=== PATIENT | male | born 1950 | race Caucasian/White ===

== ENCOUNTER 2016-12-11 08:00 | Inpatient (IN) | payer OTHER, MEDICARE ==
[2017-01-07] MEDS ORDERED: Magnesium Citrate Solution 296 ML Bottle PO ONE (00:05)
[2017-01-08] MEDS ORDERED: ceFAZolin 2 GM in Premix Bag 1 BAG IV ONE (00:05)
[2017-01-08] MEDS ORDERED: Lactated Ringers 1,000 ML IV SCH (00:05)
--- NOTE | 2017-01-08 07:10 | PCM.PREANE ---
Preanesthetic Assessment - Anesthesia/Transfusion/Family Hx Anesthesia History: No Prior Anesthesia Family History of Anesthesia Reaction: No Transfusion History: No Prior Transfusion(s) - Review of Systems General: No Symptoms Pulmonary: No Symptoms Cardiovascular: No Symptoms Gastrointestinal: No symptoms Neurological: No Symptoms Other: Reports: None - Physical Assessment NPO Status Date: 01/07/17 O2 Sat by Pulse Oximetry: 94 Respiratory Rate: 18 Vital Signs: Last Vital Signs Temp Pulse 81 01/08/17 06:51 Resp 18 01/08/17 06:51 BP 178/87 H 01/08/17 06:51 Pulse Ox 94 L 01/08/17 06:51 Height: 1.7 m Weight: 77.111 kg ASA Class: 2 Mental Status: Alert & Oriented x3 Airway Class: Mallampati = 1 Dentition: Reports: Normal Dentition ROM/Head Extension: Full Lungs: Clear to auscultation, Normal respiratory effort Cardiovascular: Regular Rate, Regular Rhythm - Lab Values: Laboratory Last Values WBC 8.73 K/uL (4.0-11.0) 01/07/17 13:44 RBC 4.82 M/uL (4.50-5.90) 01/07/17 13:44 Hgb 14.7 g/dL (13.0-17.0) 01/07/17 13:44 Hct 45.4 % (38.0-50.0) 01/07/17 13:44 MCV 94.2 fL (80.0-98.0) 01/07/17 13:44 MCH 30.5 pg (27.0-32.0) 01/07/17 13:44 MCHC 32.4 g/dL (31.0-37.0) 01/07/17 13:44 RDW Std Deviation 45.8 fl (28.0-62.0) 01/07/17 13:44 RDW Coeff of Mohan 13 % (11.0-15.0) 01/07/17 13:44 Plt Count 230 K/uL (150-400) 01/07/17 13:44 MPV 11.70 fL (7.40-12.00) 01/07/17 13:44 Neut % (Auto) 62.1 % (48.0-80.0) 01/07/17 13:44 Lymph % (Auto) 22.1 % (16.0-40.0) 01/07/17 13:44 [place] % (Auto) 13.3 % (0.0-15.0) 01/07/17 13:44 Eos % (Auto) 2.2 % (0.0-7.0) 01/07/17 13:44 Baso % (Auto) 0.3 % (0.0-1.5) 01/07/17 13:44 Neut # (Auto) 5.4 K/uL (1.4-5.7) 01/07/17 13:44 Lymph # (Auto) 1.9 K/uL (0.6-2.4) 01/07/17 13:44 [place] # (Auto) 1.2 K/uL (0.0-0.8) H 01/07/17 13:44 Eos # (Auto) 0.2 K/uL (0.0-0.7) 01/07/17 13:44 Baso # (Auto) 0.0 K/uL (0.0-0.1) 01/07/17 13:44 Nucleated RBC % 0.0 /100WBC 01/07/17 13:44 Nucleated RBCs # 0 K/uL 01/07/17 13:44 Blood Type A POSITIVE 01/07/17 16:46 Antibody Screen NEGATIVE 01/07/17 16:46 Crossmatch See Detail 01/07/17 16:46 - Allergies Allergies/Adverse Reactions: Allergies Allergy/AdvReac Type Severity Reaction Status Date / Time No Known Allergies Allergy Verified 10/23/16 08:50 - Blood Blood Available: Yes - Anesthesia Plan Pre-Op Medication Ordered: None - Acknowledgements Anesthesia Type Planned: General Anesthesia, Spinal Pt an Appropriate Candidate for the Planned Anesthesia: Yes Alternatives and Risks of Anesthesia Discussed w Pt/Guardian: Yes Pt/Guardian Understands and Agrees with Anesthesia Plan: Yes PreAnesthesia Questionnaire HEENT History: Reports: Other (see below) Other HEENT History: wears glasses Cardiovascular History: Reports: High cholesterol, Hypertension Respiratory History: Reports: SOB Other Respiratory History: states SOB at times with excertion Gastrointestinal History: Reports: GERD Genitourinary History: Reports: Prostate disorder, Other (see below) (CKD3, creat 1.8,) Musculoskeletal History: Reports: Other (see below) Other Musculoskeletal History: hx fx thumb Oncologic (Cancer) History: Reports: Prostate - Past Surgical History Head Surgeries/Procedures: Reports: None - SUBSTANCE USE Smoking Status *Q: Former Smoker Recreational Drug Use History: No - HOME MEDS Home Medications: Home Meds Aspirin [[place] Aspirin] 81 mg PO ASDIRECTED 01/03/17 [History] Famotidine [Pepcid] 1 tab PO DAILY 01/03/17 [History] Pravastatin Sodium [Pravachol] 40 mg PO DAILY 01/03/17 [History] amLODIPine Besylate [Norvasc] 2.5 mg PO DAILY 01/03/17 [History] - CURRENT (IN HOUSE) MEDS Current Meds: Current Medications Lactated Ringer's (Ringers, Lactated) 1,000 mls @ 200 mls/hr IV ASDIRECTED [facility] Last Admin: 01/08/17 06:53 Dose: 200 mls/hr Discontinued Medications Cefazolin Sodium/Dextrose 2 gm (/ Premix) 50 mls @ 100 mls/hr IV ONCALL ONE Stop: 01/08/17 00:34 Magnesium Citrate (Citrate Of Magnesia) 1 ml PO ONETIME ONE Stop: 01/07/17 00:06 Preanesthetic Assessment - ANESTHESIA/TRANSFUSION/FAMILY HX Family History of Anesthesia Reaction: No - PHYSICAL ASSESSMENT O2 Sat by Pulse Oximetry: 94 RR: 18 Vital Signs: Last Vital Signs Temp Pulse 81 01/08/17 06:51 Resp 18 01/08/17 06:51 BP 178/87 H 01/08/17 06:51 Pulse Ox 94 L 01/08/17 06:51 Height: 1.7 m Weight: 77.111 kg - LAB Values: Laboratory Last Values WBC 8.73 K/uL (4.0-11.0) 01/07/17 13:44 RBC 4.82 M/uL (4.50-5.90) 01/07/17 13:44 Hgb 14.7 g/dL (13.0-17.0) 01/07/17 13:44 Hct 45.4 % (38.0-50.0) 01/07/17 13:44 MCV 94.2 fL (80.0-98.0) 01/07/17 13:44 MCH 30.5 pg (27.0-32.0) 01/07/17 13:44 MCHC 32.4 g/dL (31.0-37.0) 01/07/17 13:44 RDW Std Deviation 45.8 fl (28.0-62.0) 01/07/17 13:44 RDW Coeff of Mohan 13 % (11.0-15.0) 01/07/17 13:44 Plt Count 230 K/uL (150-400) 01/07/17 13:44 MPV 11.70 fL (7.40-12.00) 01/07/17 13:44 Neut % (Auto) 62.1 % (48.0-80.0) 01/07/17 13:44 Lymph % (Auto) 22.1 % (16.0-40.0) 01/07/17 13:44 [place] % (Auto) 13.3 % (0.0-15.0) 01/07/17 13:44 Eos % (Auto) 2.2 % (0.0-7.0) 01/07/17 13:44 Baso % (Auto) 0.3 % (0.0-1.5) 01/07/17 13:44 Neut # (Auto) 5.4 K/uL (1.4-5.7) 01/07/17 13:44 Lymph # (Auto) 1.9 K/uL (0.6-2.4) 01/07/17 13:44 [place] # (Auto) 1.2 K/uL (0.0-0.8) H 01/07/17 13:44 Eos # (Auto) 0.2 K/uL (0.0-0.7) 01/07/17 13:44 Baso # (Auto) 0.0 K/uL (0.0-0.1) 01/07/17 13:44 Nucleated RBC % 0.0 /100WBC 01/07/17 13:44 Nucleated RBCs # 0 K/uL 01/07/17 13:44 Blood Type A POSITIVE 01/07/17 16:46 Antibody Screen NEGATIVE 01/07/17 16:46 Crossmatch See Detail 01/07/17 16:46 - ALLERGIES Allergies/Adverse Reactions: Allergies Allergy/AdvReac Type Severity Reaction Status Date / Time No Known Allergies Allergy Verified 10/23/16 08:50
[2017-01-08] MEDS ORDERED: Ondansetron 4 MG/2 ML SDV ONE (07:26)
[2017-01-08] MEDS ORDERED: Lidocaine 2% 5 ML SDV ONE (07:26)
[2017-01-08] MEDS ORDERED: Rocuronium 10 MG/ML 10 ML Syringe ONE (07:26)
[2017-01-08] MEDS ORDERED: Propofol 200 MG/20 ML SDV ONE (07:26)
[2017-01-08] MEDS ORDERED: Midazolam 1 MG/ML 2 ML SDV ONE (07:27)
[2017-01-08] MEDS ORDERED: fentaNYL 250 MCG/5 ML SDV ONE (07:27)
[2017-01-08] MEDS ORDERED: Phenylephrine 1% 10 MG/ML SDV ONE (07:29)
[2017-01-08] MEDS ORDERED: Morphine PF 10 MG/10 ML SDV ONE (08:03)
[2017-01-08] MEDS ORDERED: Phenylephrine/Normal Saline 100 MCG/ML 10 ML Syringe ONE (08:11)
[2017-01-08] MEDS ORDERED: Mineral Oil/Petrolatum Ophth Oint 3.5 GM Tube ONE (08:16)
[2017-01-08] MEDS ORDERED: Dexamethasone 4 MG/ML 5 ML MDV ONE (08:21)
[2017-01-08] MEDS ORDERED: ceFAZolin 1 GM Vial ONE (08:50)
[2017-01-08] MEDS ORDERED: Gentamicin 40 MG/ML 2 ML Vial ONE (08:50)
[2017-01-08] MEDS ORDERED: Nalbuphine 10 MG/1 ML Vial IVPUSH PRN (09:08)
[2017-01-08] MEDS ORDERED: diphenhydrAMINE 50 MG/ML SDV IVPUSH PRN (09:08)
[2017-01-08] MEDS ORDERED: Naloxone 0.4 MG/ML Syringe IVPUSH PRN (09:08)
--- NOTE | 2017-01-08 09:18 | PCM.PREANE ---
Preanesthetic Assessment - Anesthesia/Transfusion/Family Hx Anesthesia History: No Prior Anesthesia Family History of Anesthesia Reaction: No Transfusion History: No Prior Transfusion(s) Intubation History: History of Difficulty Intubation (Anterior/Grade IV View with Cano 2 (disposable); Bougie used and successful) - Review of Systems Other: Reports: None - Physical Assessment NPO Status Date: 01/07/17 O2 Sat by Pulse Oximetry: 94 Respiratory Rate: 18 Vital Signs: Last Vital Signs Temp Pulse 81 01/08/17 06:51 Resp 18 01/08/17 07:14 BP 178/87 H 01/08/17 06:51 Pulse Ox 94 L 01/08/17 07:14 Height: 5 ft 7 in Weight: 170 lb - Lab Values: Laboratory Last Values WBC 8.73 K/uL (4.0-11.0) 01/07/17 13:44 RBC 4.82 M/uL (4.50-5.90) 01/07/17 13:44 Hgb 14.7 g/dL (13.0-17.0) 01/07/17 13:44 Hct 45.4 % (38.0-50.0) 01/07/17 13:44 MCV 94.2 fL (80.0-98.0) 01/07/17 13:44 MCH 30.5 pg (27.0-32.0) 01/07/17 13:44 MCHC 32.4 g/dL (31.0-37.0) 01/07/17 13:44 RDW Std Deviation 45.8 fl (28.0-62.0) 01/07/17 13:44 RDW Coeff of Mohan 13 % (11.0-15.0) 01/07/17 13:44 Plt Count 230 K/uL (150-400) 01/07/17 13:44 MPV 11.70 fL (7.40-12.00) 01/07/17 13:44 Neut % (Auto) 62.1 % (48.0-80.0) 01/07/17 13:44 Lymph % (Auto) 22.1 % (16.0-40.0) 01/07/17 13:44 [place] % (Auto) 13.3 % (0.0-15.0) 01/07/17 13:44 Eos % (Auto) 2.2 % (0.0-7.0) 01/07/17 13:44 Baso % (Auto) 0.3 % (0.0-1.5) 01/07/17 13:44 Neut # (Auto) 5.4 K/uL (1.4-5.7) 01/07/17 13:44 Lymph # (Auto) 1.9 K/uL (0.6-2.4) 01/07/17 13:44 [place] # (Auto) 1.2 K/uL (0.0-0.8) H 01/07/17 13:44 Eos # (Auto) 0.2 K/uL (0.0-0.7) 01/07/17 13:44 Baso # (Auto) 0.0 K/uL (0.0-0.1) 01/07/17 13:44 Nucleated RBC % 0.0 /100WBC 01/07/17 13:44 Nucleated RBCs # 0 K/uL 01/07/17 13:44 Blood Type A POSITIVE 01/07/17 16:46 Antibody Screen NEGATIVE 01/07/17 16:46 Crossmatch See Detail 01/07/17 16:46 - Allergies Allergies/Adverse Reactions: Allergies Allergy/AdvReac Type Severity Reaction Status Date / Time No Known Allergies Allergy Verified 10/23/16 08:50 - Blood Blood Available: Yes PreAnesthesia Questionnaire HEENT History: Reports: Other (see below) Other HEENT History: wears glasses Cardiovascular History: Reports: High cholesterol, Hypertension Respiratory History: Reports: SOB Other Respiratory History: states SOB at times with excertion Gastrointestinal History: Reports: GERD Genitourinary History: Reports: Prostate disorder, Other (see below) (CKD3, creat 1.8,) Musculoskeletal History: Reports: Other (see below) Other Musculoskeletal History: hx fx thumb Oncologic (Cancer) History: Reports: Prostate - Past Surgical History Head Surgeries/Procedures: Reports: None - SUBSTANCE USE Smoking Status *Q: Former Smoker Recreational Drug Use History: No - HOME MEDS Home Medications: Home Meds Aspirin [[place] Aspirin] 81 mg PO ASDIRECTED 01/03/17 [History] Famotidine [Pepcid] 1 tab PO DAILY 01/03/17 [History] Pravastatin Sodium [Pravachol] 40 mg PO DAILY 01/03/17 [History] amLODIPine Besylate [Norvasc] 2.5 mg PO DAILY 01/03/17 [History] - CURRENT (IN HOUSE) MEDS Current Meds: Current Medications Diphenhydramine HCl (Benadryl) 25 mg IVPUSH Q4H PRN PRN Reason: Pruritis Stop: 01/09/17 09:09 Lactated Ringer's (Ringers, Lactated) 1,000 mls @ 200 mls/hr IV ASDIRECTED [facility] Last Admin: 01/08/17 06:53 Dose: 200 mls/hr Nalbuphine HCl (Nubain) 2.5 mg IVPUSH Q3H PRN PRN Reason: Pruritis Stop: 01/09/17 09:09 Naloxone HCl (Narcan) 0.1 mg IVPUSH ONETIME PRN PRN Reason: RR <6 WITH STIMULATION Stop: 01/09/17 09:10 Discontinued Medications Cefazolin Sodium (Ancef) Confirm Administered Dose 1 gm .ROUTE .STK-MED ONE Stop: 01/08/17 08:51 Dexamethasone (Dexamethasone) Confirm Administered Dose 20 mg .ROUTE .STK-MED ONE Stop: 01/08/17 08:22 Fentanyl (Sublimaze) Confirm Administered Dose 250 mcg .ROUTE .STK-MED ONE Stop: 01/08/17 07:28 Gentamicin Sulfate (Gentamicin) Confirm Administered Dose 80 mg .ROUTE .STK-MED ONE Stop: 01/08/17 08:51 Cefazolin Sodium/Dextrose 2 gm (/ Premix) 50 mls @ 100 mls/hr IV ONCALL ONE Stop: 01/08/17 00:34 Lidocaine (Xylocaine-Mpf 2%) Confirm Administered Dose 5 ml .ROUTE .STK-MED ONE Stop: 01/08/17 07:27 Magnesium Citrate (Citrate Of Magnesia) 1 ml PO ONETIME ONE Stop: 01/07/17 00:06 Midazolam HCl (Versed 1 Mg/Ml) Confirm Administered Dose 2 mg .ROUTE .STK-MED ONE Stop: 01/08/17 07:28 Mineral Oil/White Petrolatum (Lacri-Lube S.O.P Oint) Confirm Administered Dose 3.5 gm .ROUTE .STK-MED ONE Stop: 01/08/17 08:17 Morphine Sulfate (Duramorph Pf) Confirm Administered Dose 10 mg .ROUTE .STK-MED ONE Stop: 01/08/17 08:04 Ondansetron HCl (Zofran) Confirm Administered Dose 4 mg .ROUTE .STK-MED ONE Stop: 01/08/17 07:27 Phenylephrine HCl (Hussein-Synephrine) Confirm Administered Dose 10 mg .ROUTE .STK- MED ONE Stop: 01/08/17 07:30 Phenylephrine HCl (Phenylephrine In Ns 100 Mcg/Ml) Confirm Administered Dose 1 mg .ROUTE .STK-MED ONE Stop: 01/08/17 08:12 Propofol (Diprivan 20 Ml) Confirm Administered Dose 200 mg .ROUTE .STK-MED ONE Stop: 01/08/17 07:27 Rocuronium [place] (Zemuron) Confirm Administered Dose 100 mg .ROUTE .STK-MED ONE Stop: 01/08/17 07:27 Preanesthetic Assessment - ANESTHESIA/TRANSFUSION/FAMILY HX Family History of Anesthesia Reaction: No - REVIEW OF SYSTEMS Other: Reports: None - PHYSICAL ASSESSMENT O2 Sat by Pulse Oximetry: 94 RR: 18 Vital Signs: Last Vital Signs Temp Pulse 81 01/08/17 06:51 Resp 18 01/08/17 07:14 BP 178/87 H 01/08/17 06:51 Pulse Ox 94 L 01/08/17 07:14 Height: 5 ft 7 in Weight: 170 lb NPO Status Date: 01/07/17 - LAB Values: Laboratory Last Values WBC 8.73 K/uL (4.0-11.0) 01/07/17 13:44 RBC 4.82 M/uL (4.50-5.90) 01/07/17 13:44 Hgb 14.7 g/dL (13.0-17.0) 01/07/17 13:44 Hct 45.4 % (38.0-50.0) 01/07/17 13:44 MCV 94.2 fL (80.0-98.0) 01/07/17 13:44 MCH 30.5 pg (27.0-32.0) 01/07/17 13:44 MCHC 32.4 g/dL (31.0-37.0) 01/07/17 13:44 RDW Std Deviation 45.8 fl (28.0-62.0) 01/07/17 13:44 RDW Coeff of Mohan 13 % (11.0-15.0) 01/07/17 13:44 Plt Count 230 K/uL (150-400) 01/07/17 13:44 MPV 11.70 fL (7.40-12.00) 01/07/17 13:44 Neut % (Auto) 62.1 % (48.0-80.0) 01/07/17 13:44 Lymph % (Auto) 22.1 % (16.0-40.0) 01/07/17 13:44 [place] % (Auto) 13.3 % (0.0-15.0) 01/07/17 13:44 Eos % (Auto) 2.2 % (0.0-7.0) 01/07/17 13:44 Baso % (Auto) 0.3 % (0.0-1.5) 01/07/17 13:44 Neut # (Auto) 5.4 K/uL (1.4-5.7) 01/07/17 13:44 Lymph # (Auto) 1.9 K/uL (0.6-2.4) 01/07/17 13:44 [place] # (Auto) 1.2 K/uL (0.0-0.8) H 01/07/17 13:44 Eos # (Auto) 0.2 K/uL (0.0-0.7) 01/07/17 13:44 Baso # (Auto) 0.0 K/uL (0.0-0.1) 01/07/17 13:44 Nucleated RBC % 0.0 /100WBC 01/07/17 13:44 Nucleated RBCs # 0 K/uL 01/07/17 13:44 Blood Type A POSITIVE 01/07/17 16:46 Antibody Screen NEGATIVE 01/07/17 16:46 Crossmatch See Detail 01/07/17 16:46 - ALLERGIES Allergies/Adverse Reactions: Allergies Allergy/AdvReac Type Severity Reaction Status Date / Time No Known Allergies Allergy Verified 10/23/16 08:50 - BLOOD Blood Available: Yes
[2017-01-08] MEDS ORDERED: fentaNYL 100 MCG/2 ML SDV IVPUSH PRN (09:19)
[2017-01-08] MEDS ORDERED: Neostigmine Methylsulfate 1 MG/ML 5 ML Syringe ONE (10:18)
[2017-01-08] MEDS ORDERED: Furosemide 40 MG/4 ML VIAL ONE (10:43)
[2017-01-08] MEDS ORDERED: ceFAZolin 1 GM in Premix Bag 1 BAG IV SCH (10:45)
--- NOTE | 2017-01-08 11:33 | PCM.POSTAN ---
POST ANESTHESIA ASSESSMENT - MENTAL STATUS Mental Status: alert, oriented - RESPIRATORY Respiratory Status: respiratory rate WNL, airway patent, O2 saturation stable - CARDIOVASCULAR CV Status: pulse rate WNL, blood pressure stable - GASTROINTESTINAL GI Status: no symptoms - PAIN Pain Score: 0 (spinal still effective) - POST OP HYDRATION Hydration Status: other (low urine output so far; dr. Torres aware; stable hemodynamically) - OBSERVATIONS Free Text/Narrative:: To ICU for post op overnite per Dr. Torres.
--- NOTE | 2017-01-08 11:58 | OR ---
SURGEON: Andrey Torres M.D. DATE OF PROCEDURE: 01/08/2017 PREOPERATIVE DIAGNOSIS: Adenocarcinoma of the prostate, left side. POSTOPERATIVE DIAGNOSIS: Adenocarcinoma of the prostate, left side. OPERATION: Radical retropubic prostatectomy including bilateral pelvic lymph node dissection. DESCRIPTION OF PROCEDURE: The patient was given general anesthesia, placed in supine position. Table was flexed approximately 15 degrees. The lower abdomen and external genital area were all prepped and draped in sterile drapes. A catheter was placed in the bladder. A lower midline incision was made and carried through the fascia. The retropubic space on both sides exposed, exposing the external iliac vessels, the obturator nerve, and blood vessels. The obturator lymph nodes were removed that were on both sides. The puboprostatic ligaments were taken down. The endopelvic fascia was incised. Dissection around the prostate was started. The venous plexus in front of the membranous urethra was controlled with one suture of #1 Chromic. The apex of the prostate was from the membranous urethra using sharp dissection. Dissection was continued behind the prostate that from anterior wall of the rectum. The seminal vesicles were dissected and included with the specimen. The vas deferens is transected, hemoclipped on both sides. Proximal dissection was carried out the prostate from the neck of the bladder. The anastomosis between the membranous urethra and the bladder neck was completed using six 2-0 chromic sutures at the 6, 8, 10, 4, 2, and 12 o'clock positions. That anastomosis was watertight. The pelvis was irrigated and drained with two large [place] drains, one on each side. Also, brought to the outside through a separate stab wound incisions. The fascia was closed with #2 nylon suture. Subcutaneous tissues reapproximated with 3-0 chromic. Skin was closed with sundeep. AMMONIUM HYDROXIDE OPERATOR: Dr. Corona. ESTIMATED BLOOD LOSS: 200 mL. The patient tolerated the procedure well and moved to recovery room in good condition. OPERATING TIME: 1 hour and 55 minutes. JUSTIN / TONEY /[id number]
[2017-01-08] MEDS: Lactated Ringers 1,000 ML IV SCH ×2 (12:03→23:18)
[2017-01-08] MEDS: Albumin 5% 250 ML IV SCH ×2 (12:04→16:18)
[2017-01-08] MEDS: ceFAZolin 1 GM in Premix Bag 1 BAG IV SCH (16:18)
[2017-01-09] MEDS: ceFAZolin 1 GM in Premix Bag 1 BAG IV SCH ×4 (00:16→23:29)
[2017-01-09] MEDS: Lactated Ringers 1,000 ML IV SCH ×2 (06:34→15:11)
[2017-01-09] MEDS: Enoxaparin 40 MG/0.4 ML Syringe SUBCUT SCH (08:12)
[2017-01-09] MEDS: Famotidine 20 MG Tab PO SCH ×2 (08:55→21:10)
[2017-01-09] MEDS ORDERED: Famotidine 20 MG Tab PO SCH ×2 (09:00)
[2017-01-09] MEDS: Acetaminophen/HYDROcodone 325-7.5 MG Tab PO PRN ×3 (09:12→21:12)
[2017-01-10] MEDS: Lactated Ringers 1,000 ML IV SCH ×2 (03:15→16:11)
[2017-01-10] MEDS: ceFAZolin 1 GM in Premix Bag 1 BAG IV SCH ×3 (08:34→23:42)
[2017-01-10] MEDS: Enoxaparin 40 MG/0.4 ML Syringe SUBCUT SCH (08:35)
[2017-01-10] MEDS: Famotidine 20 MG Tab PO SCH ×2 (08:35→21:46)
[2017-01-10] MEDS ORDERED: Ondansetron 4 MG/2 ML SDV IVPUSH PRN (11:43)
[2017-01-10] MEDS ORDERED: Bisacodyl 10 MG Supp RECTAL ONE (11:43)
[2017-01-10] MEDS ORDERED: Acetaminophen 325 MG Tab PO PRN (17:42)
[2017-01-11] MEDS: Lactated Ringers 1,000 ML IV SCH ×2 (03:26→20:10)
[2017-01-11] MEDS: ceFAZolin 1 GM in Premix Bag 1 BAG IV SCH (07:55)
[2017-01-11] MEDS: Famotidine 20 MG Tab PO SCH ×2 (08:56→20:57)
[2017-01-11] MEDS: Enoxaparin 40 MG/0.4 ML Syringe SUBCUT SCH (08:57)
[2017-01-11] MEDS: amLODIPine 2.5 MG Tab PO SCH (09:05)
[2017-01-11] MEDS: Acetaminophen/HYDROcodone 325-7.5 MG Tab PO PRN (09:41)
--- NOTE | 2017-01-11 10:43 | PCM.DCSUM1 ---
Discharge Summary - Hospital Course Free Text/Narrative:: pt reports running out of medication some time ago and has been experiencing chest pressure radiating down LUE even awakening him at night. Admitted wit non specific st changes and negative troponin which stayed negative Pain largely resolved with resumption of medication and addition of NTG paste which was poorly tolerated with low blood pressure and headache Transfer for cath offered in view of pts strong history and angina decubitus, but he declined. He was discharged home with new prescription, instructions to do nothing unnecessary and get in touch with his cash accountant Dr Peyman Dasilva - Discharge Data Discharge Disposition: Home, Self-Care 01 Condition: Good - Patient Summary/Data Consults: Consultations 01/10/17 23:28 Consult to Physician [CONS] Routine - Discharge Plan Home Medications: Home Meds Aspirin [[place] Aspirin] 81 mg PO MOWEFR@0900 01/03/17 [History] Pravastatin Sodium [Pravachol] 40 mg PO BEDTIME 01/03/17 [History] amLODIPine Besylate [Norvasc] 2.5 mg PO DAILY 01/03/17 [History] Famotidine [Pepcid AC] 20 mg PO BID 01/09/17 [History] - Patient Data Vitals - Most Recent: Last Vital Signs Temp 37.2 C 01/11/17 07:22 Pulse 90 01/11/17 07:22 Resp 18 01/11/17 07:22 BP 168/84 H 01/11/17 09:05 Pulse Ox 90 L 01/11/17 04:00 Weight - Most Recent: 80.7 kg I&O - Last 24 hours: Intake & Output 01/10/17 01/11/17 01/11/17 22:59 06:59 14:59 Intake Total 3425 2448 Output Total 880 2700 Balance 2545 -252 Lab Results - Last 24 hrs: Laboratory Results - last 24 hr 01/07/17 01/10/17 Range/Units 16:46 18:13 WBC 14.56 H (4.0-11.0) K/uL RBC 4.02 L (4.50-5.90) M/uL Hgb 12.2 L (13.0-17.0) g/dL Hct 38.4 (38.0-50.0) % MCV 95.5 (80.0-98.0) fL MCH 30.3 (27.0-32.0) pg MCHC 31.8 (31.0-37.0) g/dL RDW Std Deviation 47.3 (28.0-62.0) fl RDW Coeff of Mohan 14 (11.0-15.0) % Plt Count 191 (150-400) K/uL MPV 11.20 (7.40-12.00) fL Add Manual Diff YES Neutrophils % (Manual) 64 (48.0-80.0) % Band Neutrophils % 14 % Lymphocytes % (Manual) 9 L (16.0-40.0) % Monocytes % (Manual) 13 (0.0-15.0) % Nucleated RBC % 0.0 /100WBC Absolute Seg Neuts 9.3 Band Neutrophils # 2.0 Lymphocytes # (Manual) 1.3 Monocytes # (Manual) 1.9 Nucleated RBCs # 0 K/uL Blood Type A POSITIVE Antibody Screen NEGATIVE Crossmatch See Detail Med Orders - Current: Current Medications Acetaminophen (Tylenol) 650 mg PO Q4H PRN PRN Reason: Fever Last Admin: 01/10/17 19:22 Dose: 650 mg Hydrocodone Bitart/Acetaminophen ([place] 325-7.5 Mg) 1 tab PO Q4H PRN PRN Reason: Pain Last Admin: 01/11/17 09:41 Dose: 1 tab Amlodipine Besylate (Norvasc) 2.5 mg PO DAILY [facility] Last Admin: 01/11/17 09:05 Dose: 2.5 mg Enoxaparin Sodium (Lovenox) 40 mg SUBCUT DAILY [facility] Last Admin: 01/11/17 08:57 Dose: 40 mg Famotidine (Pepcid) 20 mg PO BID [facility] Last Admin: 01/11/17 08:56 Dose: 20 mg Cefazolin Sodium/Dextrose 1 gm (/ Premix) 50 mls @ 100 mls/hr IV Q8H [facility] Last Admin: 01/11/17 07:55 Dose: 100 mls/hr Lactated Ringer's (Ringers, Lactated) 1,000 mls @ 100 mls/hr IV ASDIRECTED [facility] Last Admin: 01/11/17 03:26 Dose: 100 mls/hr Ondansetron HCl (Zofran) 4 mg IVPUSH Q4H PRN PRN Reason: Nausea/Vomiting Discontinued Medications Bisacodyl (Dulcolax) 10 mg RECTAL ONETIME ONE Stop: 01/10/17 11:44 Last Admin: 01/10/17 13:28 Dose: 10 mg Cefazolin Sodium (Ancef) Confirm Administered Dose 1 gm .ROUTE .STK-MED ONE Stop: 01/08/17 08:51 Dexamethasone (Dexamethasone) Confirm Administered Dose 20 mg .ROUTE .STK-MED ONE Stop: 01/08/17 08:22 Diphenhydramine HCl (Benadryl) 25 mg IVPUSH Q4H PRN PRN Reason: Pruritis Stop: 01/09/17 09:09 Famotidine (Pepcid) 20 mg PO DAILY [facility] Famotidine (Pepcid) 40 mg PO DAILY [facility] Fentanyl (Sublimaze) Confirm Administered Dose 250 mcg .ROUTE .STK-MED ONE Stop: 01/08/17 07:28 Fentanyl (Sublimaze) 50 mcg IVPUSH .Q5MIN PRN PRN Reason: Pain Stop: 01/12/17 09:20 Furosemide (Lasix) Confirm Administered Dose 40 mg .ROUTE .STK-MED ONE Stop: 01/08/17 10:44 Gentamicin Sulfate (Gentamicin) Confirm Administered Dose 80 mg .ROUTE .STK-MED ONE Stop: 01/08/17 08:51 Glycopyrrolate () Confirm Administered Dose 1 mg .ROUTE .STK-MED ONE Stop: 01/08/17 10:19 Lactated Ringer's (Ringers, Lactated) 1,000 mls @ 200 mls/hr IV ASDIRECTED [facility] Last Admin: 01/08/17 06:53 Dose: 200 mls/hr Cefazolin Sodium/Dextrose 2 gm (/ Premix) 50 mls @ 100 mls/hr IV ONCALL ONE Stop: 01/08/17 00:34 Last Admin: 01/08/17 11:49 Dose: Not Given Albumin Human (Buminate 5%) 250 mls @ 50 mls/hr IV Q5H [facility] Stop: 01/08/17 20:59 Last Admin: 01/08/17 16:18 Dose: 50 mls/hr Cefazolin Sodium/Dextrose 1 gm (/ Premix) 50 mls @ 100 mls/hr IV Q8H [facility] Last Admin: 01/08/17 13:18 Dose: Not Given Lactated Ringer's (Ringers, Lactated) 1,000 mls @ 150 mls/hr IV ASDIRECTED [facility] Last Admin: 01/09/17 06:34 Dose: 150 mls/hr Lidocaine (Xylocaine-Mpf 2%) Confirm Administered Dose 5 ml .ROUTE .STK-MED ONE Stop: 01/08/17 07:27 Magnesium Citrate (Citrate Of Magnesia) 1 ml PO ONETIME ONE Stop: 01/07/17 00:06 Last Admin: 01/08/17 11:50 Dose: Not Given Midazolam HCl (Versed 1 Mg/Ml) Confirm Administered Dose 2 mg .ROUTE .STK-MED ONE Stop: 01/08/17 07:28 Mineral Oil/White Petrolatum (Lacri-Lube S.O.P Oint) Confirm Administered Dose 3.5 gm .ROUTE .STK-MED ONE Stop: 01/08/17 08:17 Morphine Sulfate (Duramorph Pf) Confirm Administered Dose 10 mg .ROUTE .STK-MED ONE Stop: 01/08/17 08:04 Nalbuphine HCl (Nubain) 2.5 mg IVPUSH Q3H PRN PRN Reason: Pruritis Stop: 01/09/17 09:09 Naloxone HCl (Narcan) 0.1 mg IVPUSH ONETIME PRN PRN Reason: RR <6 WITH STIMULATION Stop: 01/09/17 09:10 Neostigmine Methylsulfate (Neostigmine) Confirm Administered Dose 5 mg .ROUTE .STK-MED ONE Stop: 01/08/17 10:19 Ondansetron HCl (Zofran) Confirm Administered Dose 4 mg .ROUTE .STK-MED ONE Stop: 01/08/17 07:27 Phenylephrine HCl (Hussein-Synephrine) Confirm Administered Dose 10 mg .ROUTE .STK- MED ONE Stop: 01/08/17 07:30 Phenylephrine HCl (Phenylephrine In Ns 100 Mcg/Ml) Confirm Administered Dose 1 mg .ROUTE .STK-MED ONE Stop: 01/08/17 08:12 Propofol (Diprivan 20 Ml) Confirm Administered Dose 200 mg .ROUTE .STK-MED ONE Stop: 01/08/17 07:27 Rocuronium [place] (Zemuron) Confirm Administered Dose 100 mg .ROUTE .STK-MED ONE Stop: 01/08/17 07:27 *Q Meaningful Use (DIS) - VTE *Q VTE Criteria *Q: - Stroke *Q Stroke Criteria *Q: - AMI *Q AMI Criteria *Q:
--- NOTE | 2017-01-11 10:52 | PCM.CONS ---
H&P History of Present Illness - General Date of Service: 01/11/17 Admit Problem/Dx: Admission Diagnosis/Problem Admission Diagnosis/Problem Radical retropubic prostatectomy Source of Information: Patient History Limitations: Reports: No limitations - History of Present Illness Initial Comments - Free Text/Narative: This 66 year old male was admitted on 01/08/2017 for radical prostatectomy with Dr. Torres. last evening he was febrile, 102.1. BC were obtained as well as CXR. CXR revealed slight atelectasis to R perihilar region. Leukocytosis noted as well. Has pmh of CKD stage 3, HTN, and dyslipidemia. Some occasional SOB, is a past smoker. He reports having fevers, intermittent productive cough. No chest pain or increased SOB. He has been using IS well getting up to 2000. He has been ambulating and up to chair frequently. Incisional Pain Score (Numeric/FACES): 0 - Related Data Allergies/Adverse Reactions: Allergies Allergy/AdvReac Type Severity Reaction Status Date / Time No Known Allergies Allergy Verified 10/23/16 08:50 Home Medications: Home Meds Aspirin [Machias Aspirin] 81 mg PO MOWEFR@0900 01/03/17 [History] Pravastatin Sodium [Pravachol] 40 mg PO BEDTIME 01/03/17 [History] amLODIPine Besylate [Norvasc] 2.5 mg PO DAILY 01/03/17 [History] Famotidine [Pepcid AC] 20 mg PO BID 01/09/17 [History] Past Medical History HEENT History: Reports: Other (see below) Other HEENT History: wears glasses Cardiovascular History: Reports: High cholesterol, Hypertension Respiratory History: Reports: SOB Other Respiratory History: states SOB at times with excertion Gastrointestinal History: Reports: GERD Genitourinary History: Reports: Chronic renal insuffiency, Prostate disorder Musculoskeletal History: Reports: Other (see below) Other Musculoskeletal History: hx fx thumb Oncologic (Cancer) History: Reports: Prostate - Past Surgical History Head Surgeries/Procedures: Reports: None Social & Family History - Family History Family Medical History: Noncontributory - Tobacco Use Smoking Status *Q: Former Smoker Month Tobacco Last Used: quit smoking 8 yrs ago - Caffeine Use Caffeine Use: Reports: Coffee, Soda Other Caffeine Use: Daily cofee - Alcohol Use Days Per Week of Alcohol Use: 1 Number of Drinks Per Day: 2 Total Drinks Per Week: 2 - Recreational Drug Use Recreational Drug Use: No H&P Review of Systems - Review of Systems: Review Of Systems: See Below General: Reports: fever, chills HEENT: Denies: ear pain, headaches, post nasal drip, sinus congestion, vertigo Pulmonary: Reports: No Symptoms Cardiovascular: Reports: no symptoms. Denies: chest pain, palpitations, edema Gastrointestinal: Reports: Abdominal pain (incisional), Flatus. Denies: Black stool, Bloody stool, Nausea, Vomiting Genitourinary: Reports: no symptoms. Denies: dysuria, frequency, burning Musculoskeletal: Reports: no symptoms Skin: Reports: no symptoms Psychiatric: Reports: no symptoms Neurological: Reports: No Symptoms Hematologic/Lymphatic: Reports: no symptoms Immunologic: Reports: no symptoms Exam - Exam Exam: See Below - Vital Signs Vital Signs: Last Vital Signs Temp 98.9 F 01/11/17 07:22 Pulse 90 01/11/17 07:22 Resp 18 01/11/17 07:22 BP 168/84 H 01/11/17 09:05 Pulse Ox 90 L 01/11/17 04:00 Weight: 80.7 kg - Exam Quality Assessment: urinary catheter. No: supplemental oxygen General: alert, oriented, cooperative HEENT: Conjunctiva clear, EACs clear, Hearing intact, Mucosa moist & pink, Nares patent, Posterior pharynx clear Neck: supple, trachea midline, 2+ carotid pulse wo bruit Lungs: Normal respiratory effort, Crackles (fine to R mid lobe). No: Wheezing Cardiovascular: regular rate, regular rhythm, normal S1, normal S2. No: systolic murmur Abdomen: normal bowel sounds, soft, tenderness (near incision ). No: rigidity, rebound Extremities: normal inspection, normal pulses. No: calf tenderness, edema Neuro Extensive - Mental Status: alert, oriented x3, normal mood/affect, normal cognition Neuro Extensive - Motor, Sensory, Reflexes: CN II-XII intact, normal gait, normal reflexes Psychiatric: alert, normal affect, normal mood - Patient Data Lab Results last 24 hrs: Laboratory Results - last 24 hr 01/07/17 01/10/17 Range/Units 16:46 18:13 WBC 14.56 H (4.0-11.0) K/uL RBC 4.02 L (4.50-5.90) M/uL Hgb 12.2 L (13.0-17.0) g/dL Hct 38.4 (38.0-50.0) % MCV 95.5 (80.0-98.0) fL MCH 30.3 (27.0-32.0) pg MCHC 31.8 (31.0-37.0) g/dL RDW Std Deviation 47.3 (28.0-62.0) fl RDW Coeff of Mohan 14 (11.0-15.0) % Plt Count 191 (150-400) K/uL MPV 11.20 (7.40-12.00) fL Add Manual Diff YES Neutrophils % (Manual) 64 (48.0-80.0) % Band Neutrophils % 14 % Lymphocytes % (Manual) 9 L (16.0-40.0) % Monocytes % (Manual) 13 (0.0-15.0) % Nucleated RBC % 0.0 /100WBC Absolute Seg Neuts 9.3 Band Neutrophils # 2.0 Lymphocytes # (Manual) 1.3 Monocytes # (Manual) 1.9 Nucleated RBCs # 0 K/uL Blood Type A POSITIVE Antibody Screen NEGATIVE Crossmatch See Detail Result Diagrams: 01/10/17 18:13 01/09/17 04:20 Consult PN Assessment/Plan Procedures: Procedures ASSAY OF BLOOD/URIC ACID (10/03/16) ASSAY OF PSA TOTAL (10/03/16) METABOLIC PANEL TOTAL CA (01/07/17) MRI ABDOMEN W/O DYE (10/23/16) OFFICE/OUTPATIENT VISIT EST (10/03/16) OFFICE/OUTPATIENT VISIT NEW (11/14/15) ROUTINE VENIPUNCTURE (01/07/17) TISSUE EXAM BY PATHOLOGIST (10/17/16) URINALYSIS AUTO W/SCOPE (10/16/16) US EXAM ABDO BACK [place] (10/05/16) (1) Pneumonia SNOMED Code(s): 298763618 Code(s): J18.9 - PNEUMONIA, UNSPECIFIED ORGANISM Current Visit: Yes Qualifiers: Pneumonia type: due to unspecified organism Laterality: right Lung location: middle lobe of lung Qualified Code(s): J18.1 - Lobar pneumonia, unspecified organism (2) CKD (chronic kidney disease) stage 3, GFR 30-59 ml/min SNOMED Code(s): 759354155 Code(s): N18.3 - CHRONIC KIDNEY DISEASE, STAGE 3 (MODERATE) Priority: Medium Current Visit: Yes (3) HTN (hypertension) SNOMED Code(s): 22535775 Code(s): I10 - ESSENTIAL (PRIMARY) HYPERTENSION Priority: Low Current Visit: Yes Qualifiers: Hypertension type: essential hypertension Qualified Code(s): I10 - Essential (primary) hypertension (4) Dyslipidemia SNOMED Code(s): 369868706 Code(s): E78.5 - HYPERLIPIDEMIA, UNSPECIFIED Priority: Low Current Visit : Yes (5) GERD (gastroesophageal reflux disease) SNOMED Code(s): 211192073 Code(s): K21.9 - GASTRO-ESOPHAGEAL REFLUX DISEASE WITHOUT ESOPHAGITIS Priority: Low Current Visit: Yes Qualifiers: Esophagitis presence: without esophagitis Qualified Code(s): K21.9 - Gastro -esophageal reflux disease without esophagitis Problem List Initiated/Reviewed/Updated: Yes My Orders last 24 hours: My Active Orders 01/11/17 10:48 CULTURE SPUTUM + SMEAR [RM] Routine 01/11/17 10:49 BMP [BASIC METABOLIC PANEL,BMP] [CHEM] Routine 01/11/17 11:00 Levofloxacin/Dextrose 5%-Water [Levaquin in D5W 750 MG/150 ML] 750 mg Premix Bag 1 bag IV Q24H Piperacillin/Tazobactam [Piperacil-Tazobact] 4.5 gm Sodium Chloride 0.9% [ Normal Saline] 100 ml IV Q6H Vancomycin Pharmacy to Dose [Pharmacy to Dose - Vancomycin] 1 dose .XX ASDIRECTED Plan: This 66 year old male admitted for radical prostatectomy now has clinical pneumonia 1. Pneumonia: BC pending. Will obtain sputum culture. Broad spectrum antibiotics due to recent surgery, Vancomycin, Cefepime and Levaquin. Monitor response. Discussed with Dr. Tim and Dr. Pino, both agree with treatment plan.
[2017-01-11] MEDS ORDERED: Levofloxacin/Dextrose 5%-Water 750 MG in Premix Bag 1 BAG IV SCH (11:00)
[2017-01-11] MEDS ORDERED: Piperacillin/Tazobactam 4.5 GM in Sodium Chloride 0.9% 100 ML IV SCH (11:00)
[2017-01-11] MEDS ORDERED: Cefepime 2 GM in Premix Bag 1 BAG IV SCH (13:00)
--- NOTE | 2017-01-11 16:09 | CR ---
EXAM DATE: 01/08/17 PATIENT'S AGE: 66 Patient: LINDSEY CRUM Facility: [place], [place] Site . Site : 1950 Study: XRay Chest [id number]/30/2017 8:54:54 PM Ordering Physician: Brian Balderas Final Report: INDICATION: Fever TECHNIQUE: Chest 2 views. COMPARISON: 12/01/2013 FINDINGS: Cardiovascular and mediastinum: Stable cardiomediastinal silhouette. An unfolded aorta. Lungs and pleural spaces: Right infrahilar subsegmental atelectasis. Small ill defined posterior basilar opacity on the lateral view could represent mild subsegmental atelectasis. A 1.6 centimeter ovoid right hilar density could represent central vessel, slightly more prominent compared to the prior. No gross pleural effusions. Bones and soft tissues: No significant change. IMPRESSION: Right infrahilar and probable posterior basilar subsegmental atelectasis. A right hilar ovoid density could represent a vessel. A lymph node is not entirely excluded. Dictated by Mikhail Jensen MD @ 01/10/2017 9:29:24 PM Dictated by: Mikhail Jensen MD @ 01/10/2017 21:29:29 (Electronic Signature) Report Signed by Proxy and Original Signed Document filed in the Medical Record. MTDD
--- NOTE | 2017-01-11 16:10 | CR ---
EXAM DATE: 01/08/17 PATIENT'S AGE: 66 Patient: LINDSEY CRUM Facility: [place], [place] Site . Site : 1950 Study: XRay Chest [id number]/30/2017 8:54:54 PM Ordering Physician: Brian Balderas Final Report: INDICATION: Fever TECHNIQUE: Chest 2 views. COMPARISON: 12/01/2013 FINDINGS: Cardiovascular and mediastinum: Stable cardiomediastinal silhouette. An unfolded aorta. Lungs and pleural spaces: Right infrahilar subsegmental atelectasis. Small ill defined posterior basilar opacity on the lateral view could represent mild subsegmental atelectasis. A 1.6 centimeter ovoid right hilar density could represent central vessel, slightly more prominent compared to the prior. No gross pleural effusions. Bones and soft tissues: No significant change. IMPRESSION: Right infrahilar and probable posterior basilar subsegmental atelectasis. A right hilar ovoid density could represent a vessel. A lymph node is not entirely excluded. Dictated by Mikhail Jensen MD @ 01/10/2017 9:29:24 PM Dictated by: Mikhail Jensen MD @ 01/10/2017 21:29:29 (Electronic Signature) Report Signed by Proxy and Original Signed Document filed in the Medical Record. MTDD
[2017-01-12] MEDS: Lactated Ringers 1,000 ML IV SCH (06:20)
[2017-01-12] MEDS: Famotidine 20 MG Tab PO SCH (09:15)
[2017-01-12] MEDS: Enoxaparin 40 MG/0.4 ML Syringe SUBCUT SCH (09:16)
[2017-01-12] MEDS: amLODIPine 2.5 MG Tab PO SCH (09:16)
[2017-01-12 13:39] VITALS: BP 157/84
--- NOTE | 2017-01-12 13:58 | PCM.PN ---
- General Info Date of Service: 01/12/17 Functional Status: Reports: pain controlled - Review of Systems General: Reports: No Symptoms HEENT: Reports: no symptoms Pulmonary: Reports: no symptoms Cardiovascular: Reports: No Symptoms Gastrointestinal: Reports: No symptoms Genitourinary: Reports: no symptoms Musculoskeletal: Reports: no symptoms Skin: Reports: no symptoms Neurological: Reports: No Symptoms Psychiatric: Reports: no symptoms - Patient Data Vitals - most recent: Last Vital Signs Temp 36.8 C 01/12/17 12:00 Pulse 89 01/12/17 12:00 Resp 16 01/12/17 12:00 BP 157/84 H 01/12/17 12:00 Pulse Ox 94 L 01/12/17 12:00 Weight - most recent: 80.7 kg I&O - last 24 hours: Intake & Output 01/11/17 01/12/17 01/12/17 22:59 06:59 14:59 Intake Total 1068 1250 Output Total 2850 Balance 1068 -1600 Lab Results last 24 hrs: Laboratory Results - last 24 hr 01/12/17 01/12/17 Range/Units 04:25 04:25 WBC 10.05 (4.0-11.0) K/uL RBC 3.78 L (4.50-5.90) M/uL Hgb 11.4 L (13.0-17.0) g/dL Hct 35.5 L (38.0-50.0) % MCV 93.9 (80.0-98.0) fL MCH 30.2 (27.0-32.0) pg MCHC 32.1 (31.0-37.0) g/dL RDW Std Deviation 45.4 (28.0-62.0) fl RDW Coeff of Mohan 13 (11.0-15.0) % Plt Count 225 (150-400) K/uL MPV 10.60 (7.40-12.00) fL Neut % (Auto) 66.5 (48.0-80.0) % Lymph % (Auto) 16.0 (16.0-40.0) % [place] % (Auto) 15.0 (0.0-15.0) % Eos % (Auto) 2.3 (0.0-7.0) % Baso % (Auto) 0.2 (0.0-1.5) % Neut # (Auto) 6.7 H (1.4-5.7) K/uL Lymph # (Auto) 1.6 (0.6-2.4) K/uL [place] # (Auto) 1.5 H (0.0-0.8) K/uL Eos # (Auto) 0.2 (0.0-0.7) K/uL Baso # (Auto) 0.0 (0.0-0.1) K/uL Nucleated RBC % 0.0 /100WBC Nucleated RBCs # 0 K/uL Sodium 140 (136-146) mmol/L Potassium 4.6 (3.5-5.1) mmol/L Chloride 109 (98-110) mmol/L Carbon Dioxide 23 (21-31) mmol/L BUN 31 H (6.0-23.0) mg/dL Creatinine 1.7 H (0.6-1.5) mg/dL Est Cr Clr Drug Dosing 38.79 mL/min Estimated GFR (MDRD) 40.3 ml/min Glucose 101 (60-110) mg/dL Calcium 8.3 L (8.8-10.8) mg/dL Hair Results last 24 hrs: Microbiology 01/10/17 18:19 Aerobic Blood Culture - Preliminary Blood - Venous - Lab Draw NO GROWTH AFTER 1 DAY Anaerobic Blood Culture - Preliminary NO GROWTH AFTER 1 DAY 01/10/17 18:13 Aerobic Blood Culture - Preliminary Blood - Venous NO GROWTH AFTER 1 DAY Anaerobic Blood Culture - Preliminary NO GROWTH AFTER 1 DAY Med Orders - Current: Current Medications Acetaminophen (Tylenol) 650 mg PO Q4H PRN PRN Reason: Fever Last Admin: 01/10/17 19:22 Dose: 650 mg Hydrocodone Bitart/Acetaminophen ([place] 325-7.5 Mg) 1 tab PO Q4H PRN PRN Reason: Pain Last Admin: 01/11/17 09:41 Dose: 1 tab Amlodipine Besylate (Norvasc) 2.5 mg PO DAILY [facility] Last Admin: 01/12/17 09:16 Dose: 2.5 mg Enoxaparin Sodium (Lovenox) 40 mg SUBCUT DAILY [facility] Last Admin: 01/12/17 09:16 Dose: 40 mg Famotidine (Pepcid) 20 mg PO BID [facility] Last Admin: 01/12/17 09:15 Dose: 20 mg Levofloxacin/Dextrose 750 mg/ (Premix) 150 mls @ 100 mls/hr IV Q48H [facility] Last Admin: 01/11/17 12:42 Dose: 100 mls/hr Cefepime HCl 2 gm/ Premix 50 mls @ 100 mls/hr IV Q24H [facility] Last Admin: 01/11/17 14:24 Dose: 100 mls/hr Vancomycin HCl 1,250 mg/ (Sodium Chloride) 250 mls @ 166.667 mls/hr IV Q24H [facility] Ondansetron HCl (Zofran) 4 mg IVPUSH Q4H PRN PRN Reason: Nausea/Vomiting Vancomycin HCl (Pharmacy To Dose - Vancomycin) 1 dose .XX ASDIRECTED [facility] Discontinued Medications Bisacodyl (Dulcolax) 10 mg RECTAL ONETIME ONE Stop: 01/10/17 11:44 Last Admin: 01/10/17 13:28 Dose: 10 mg Cefazolin Sodium (Ancef) Confirm Administered Dose 1 gm .ROUTE .STK-MED ONE Stop: 01/08/17 08:51 Dexamethasone (Dexamethasone) Confirm Administered Dose 20 mg .ROUTE .STK-MED ONE Stop: 01/08/17 08:22 Diphenhydramine HCl (Benadryl) 25 mg IVPUSH Q4H PRN PRN Reason: Pruritis Stop: 01/09/17 09:09 Famotidine (Pepcid) 20 mg PO DAILY [facility] Famotidine (Pepcid) 40 mg PO DAILY [facility] Fentanyl (Sublimaze) Confirm Administered Dose 250 mcg .ROUTE .STK-MED ONE Stop: 01/08/17 07:28 Fentanyl (Sublimaze) 50 mcg IVPUSH .Q5MIN PRN PRN Reason: Pain Stop: 01/12/17 09:20 Furosemide (Lasix) Confirm Administered Dose 40 mg .ROUTE .STK-MED ONE Stop: 01/08/17 10:44 Gentamicin Sulfate (Gentamicin) Confirm Administered Dose 80 mg .ROUTE .STK-MED ONE Stop: 01/08/17 08:51 Glycopyrrolate () Confirm Administered Dose 1 mg .ROUTE .STK-MED ONE Stop: 01/08/17 10:19 Lactated Ringer's (Ringers, Lactated) 1,000 mls @ 200 mls/hr IV ASDIRECTED [facility] Last Admin: 01/08/17 06:53 Dose: 200 mls/hr Cefazolin Sodium/Dextrose 2 gm (/ Premix) 50 mls @ 100 mls/hr IV ONCALL ONE Stop: 01/08/17 00:34 Last Admin: 01/08/17 11:49 Dose: Not Given Albumin Human (Buminate 5%) 250 mls @ 50 mls/hr IV Q5H [facility] Stop: 01/08/17 20:59 Last Admin: 01/08/17 16:18 Dose: 50 mls/hr Cefazolin Sodium/Dextrose 1 gm (/ Premix) 50 mls @ 100 mls/hr IV Q8H [facility] Last Admin: 01/08/17 13:18 Dose: Not Given Lactated Ringer's (Ringers, Lactated) 1,000 mls @ 150 mls/hr IV ASDIRECTED [facility] Last Admin: 01/09/17 06:34 Dose: 150 mls/hr Cefazolin Sodium/Dextrose 1 gm (/ Premix) 50 mls @ 100 mls/hr IV Q8H [facility] Last Admin: 01/11/17 07:55 Dose: 100 mls/hr Lactated Ringer's (Ringers, Lactated) 1,000 mls @ 100 mls/hr IV ASDIRECTED [facility] Last Admin: 01/12/17 06:20 Dose: 100 mls/hr Piperacillin Sod/Tazobactam (Sod 4.5 gm/ Sodium Chloride) 100 mls @ 100 mls/hr IV Q6H [facility] Vancomycin HCl 1,250 mg/ (Sodium Chloride) 500 mls @ 500 mls/hr IV Q24H [facility] Last Admin: 01/11/17 15:35 Dose: Not Given Vancomycin HCl 1,250 mg/ (Sodium Chloride) 500 mls @ 500 mls/hr IV Q24H [facility] Last Infusion: 01/11/17 15:40 Dose: 333 mls/hr Vancomycin HCl 1,250 mg/ (Sodium Chloride) 500 mls @ 333.333 mls/hr IV Q24H [facility] Last Admin: 01/11/17 17:40 Dose: Not Given Vancomycin HCl 1,250 mg/ (Sodium Chloride) 250 mls @ 166.667 mls/hr IV Q24H [facility] Lidocaine (Xylocaine-Mpf 2%) Confirm Administered Dose 5 ml .ROUTE .STK-MED ONE Stop: 01/08/17 07:27 Magnesium Citrate (Citrate Of Magnesia) 1 ml PO ONETIME ONE Stop: 01/07/17 00:06 Last Admin: 01/08/17 11:50 Dose: Not Given Midazolam HCl (Versed 1 Mg/Ml) Confirm Administered Dose 2 mg .ROUTE .STK-MED ONE Stop: 01/08/17 07:28 Mineral Oil/White Petrolatum (Lacri-Lube S.O.P Oint) Confirm Administered Dose 3.5 gm .ROUTE .STK-MED ONE Stop: 01/08/17 08:17 Morphine Sulfate (Duramorph Pf) Confirm Administered Dose 10 mg .ROUTE .STK-MED ONE Stop: 01/08/17 08:04 Nalbuphine HCl (Nubain) 2.5 mg IVPUSH Q3H PRN PRN Reason: Pruritis Stop: 01/09/17 09:09 Naloxone HCl (Narcan) 0.1 mg IVPUSH ONETIME PRN PRN Reason: RR <6 WITH STIMULATION Stop: 01/09/17 09:10 Neostigmine Methylsulfate (Neostigmine) Confirm Administered Dose 5 mg .ROUTE .STK-MED ONE Stop: 01/08/17 10:19 Ondansetron HCl (Zofran) Confirm Administered Dose 4 mg .ROUTE .STK-MED ONE Stop: 01/08/17 07:27 Phenylephrine HCl (Hussein-Synephrine) Confirm Administered Dose 10 mg .ROUTE .STK- MED ONE Stop: 01/08/17 07:30 Phenylephrine HCl (Phenylephrine In Ns 100 Mcg/Ml) Confirm Administered Dose 1 mg .ROUTE .STK-MED ONE Stop: 01/08/17 08:12 Propofol (Diprivan 20 Ml) Confirm Administered Dose 200 mg .ROUTE .STK-MED ONE Stop: 01/08/17 07:27 Rocuronium [place] (Zemuron) Confirm Administered Dose 100 mg .ROUTE .STK-MED ONE Stop: 01/08/17 07:27 - Exam General: alert, oriented HEENT: Pupils equal, Pupils reactive, EOMI, Mucous membr. moist/pink Neck: supple Lungs: Clear to auscultation, Normal respiratory effort Cardiovascular: Regular Rate, Regular Rhythm Abdomen: bowel sounds present, soft, no tenderness, no distension (Male) Exam: No hernia, Normal inspection, Normal prostate, Circumcised Back Exam: normal inspection, full range of motion Extremities: no edema Skin: warm, dry, intact Wound/Incisions: healing well, other (not examined) Neurological: no new focal deficit Psy/Mental Status: alert, normal affect, normal mood - Problem List Review Problem List Initiated/Reviewed/Updated: Yes - My Orders Last 24 Hours: My Active Orders 01/12/17 16:00 Vancomycin 1,250 mg Sodium Chloride 0.9% [Normal Saline] 250 ml IV Q24H - Assessment Assessment:: 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 Dose dropped to 500mg for renal insufficiency
--- NOTE | 2017-01-12 20:29 | DISCH ---
DATE OF DISCHARGE: 01/12/2017 PRIMARY CARE PHYSICIAN: Naresh Lockwood M.D. HOSPITAL COURSE: A 66 years old was admitted to the hospital and had radical retropubic prostatectomy 4 days ago. Postoperatively, did well. 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 He had an episode of low-grade fever, and had a chest x-ray that was read as showing segmental atelectasis. He was treated for that, was sent home on the fourth postoperative day. At the time, he is afebrile. He is pain free. The wound looked good. The [place] drains were advanced. He will be sent home on an antibiotic that is decided on by the hospitalist. I will see him this coming Saturday to take the [place] drains out and the sundeep out. JUSTIN / TONEY /[id number]
== END 2017-01-12 15:20 | disposition home or self-care (01) | DRG 707 ==
LOC: MW.ICU 01-08 06:29 → MW.MS 01-09 18:51
PROVIDERS: ADMIT Urology; ATTEND Urology
PROC: 0VT00ZZ Resection of Prostate, Open Approach (ICD-10-PCS; principal; 2017-01-08)
PROC: 07TJ0ZZ Resection of Left Inguinal Lymphatic, Open Approach (ICD-10-PCS; 2017-01-08)
DX: C61 Malignant neoplasm of prostate (principal); J18.9 Pneumonia, unspecified organism; I12.9 Hypertensive chronic kidney disease with stage 1 through stage 4 chronic kidney disease, or unspecified chronic kidney disease; N18.3 Chronic kidney disease, stage 3 (moderate); E78.5 Hyperlipidemia, unspecified; Z79.899 Other long term (current) drug therapy; Z87.891 Personal history of nicotine dependence; K21.9 Gastro-esophageal reflux disease without esophagitis
CPT/HCPCS: 00865; 36415; 71020; 71020-26; 80048; 85025; 86850; 86900; 86901; 86920; 86921; 86922; 87040; 88307; 88309; A9270-GY; J0690; J0692; J1100; J1580; J1650; J1940; J1956; J2250; J2270; J2370; J2405; J2704; J3010; J3370; J7040; J7120

== ENCOUNTER → 2017-01-07 | Outpatient (CLI) | payer OTHER, MEDICARE | END | disposition home or self-care (01) | LOC: MW.CHUR 13:29 | PROVIDERS: ATTEND Emergency Medicine | DX: N18.3 Chronic kidney disease, stage 3 (moderate) (principal) | CPT/HCPCS: 36415; 80048 ==

== ENCOUNTER 2020-03-22 22:12 | Emergency (ER) | payer OTHER, MEDICARE ==
[2020-03-22] MEDS ORDERED: Sodium Chloride 0.9% 10 ML Syringe FLUSH PRN (22:42)
[2020-03-22] MEDS ORDERED: Sodium Chloride 0.9% 2.5 ML Syringe FLUSH PRN (22:42)
--- NOTE | 2020-03-22 23:17 | EDM.PDOC ---
ED HPI GENERAL MEDICAL PROBLEM - General Chief Complaint: Lower Extremity Injury/Pain Stated Complaint: POSSIBLE RIGHT KNEE INJURY Time Seen by Provider: 03/22/20 22:27 Source of Information: Reports: Patient History Limitations: Reports: No Limitations - History of Present Illness INITIAL COMMENTS - FREE TEXT/NARRATIVE: History of present illness: [Patient is 70-year-old male who presents with right knee pain for the last couple of days. He denies any falls trauma or injury. Denies any chronic knee problems. Denies any recent joint injections, scrapes, injuries to the skin, or other issues. He has been using ice and Tylenol at home to help with the symptoms. This is provided minimal relief. He denies any systemic symptoms. Denies any chest pain or shortness of breath or fever or chills. Denies known history of gout but states he has had issues in the past where he gets toe pain randomly for no apparent reason with no trauma associated with it. ] Review of systems: As per history of present illness and below otherwise all systems reviewed and negative. Past medical history: As per history of present illness and as reviewed below otherwise noncontributory. Surgical history: As per history of present illness and as reviewed below otherwise noncontributory. Social history: No reported history of drug or alcohol abuse. Family history: As per history of present illness and as reviewed below otherwise noncontributory. Physical exam: General: Awake, alert, no acute distress, A&O X3. HEENT: Atraumatic, normocephalic, pupils reactive, negative for conjunctival pallor or scleral icterus, mucous membranes moist, throat clear, neck supple, nontender, trachea midline. Lungs: Clear to auscultation, breath sounds equal bilaterally, chest nontender. Heart: RRR, normal S1S2, no JVD. Abdomen: Soft, nondistended, nontender. Negative for masses or hepatosplenomegaly. Pelvis: Stable nontender. Genitourinary: Deferred. Rectal: Deferred. Extremities: Right knee is warmer to the touch when compared to the left. Mild edema of the right knee when compared to the left. No induration. No purulent discharge. No obvious lesions or wounds. Mild faint erythema overlying the anterior portion of the knee. Right leg is neurovascular intact. Passive and active range of motion mildly limited due to pain Neuro: Motor and sensory grossly intact throughout. Exam nonfocal. Diagnostics: [] Therapeutics: [] Impression: [] Plan: [] Definitive disposition and diagnosis as appropriate pending reevaluation and review of above. Right Knee Pain Score (Numeric/FACES): 8 - Related Data Allergies Allergy/AdvReac Type Severity Reaction Status Date / Time No Known Allergies Allergy Verified 03/22/20 23:28 Home Meds: Home Meds Aspirin [[place] Aspirin EC] 81 mg PO MOWEFR@0900 01/03/17 [History] Pravastatin Sodium [Pravachol] 40 mg PO BEDTIME 01/03/17 [History] amLODIPine Besylate [Norvasc] 2.5 mg PO DAILY 01/03/17 [History] Famotidine [Pepcid AC] 20 mg PO BID 01/09/17 [History] Past Medical History HEENT History: Reports: Other (See Below) Other HEENT History: wears glasses Cardiovascular History: Reports: High Cholesterol, Hypertension Respiratory History: Reports: SOB Other Respiratory History: states SOB at times with excertion Gastrointestinal History: Reports: GERD Genitourinary History: Reports: Chronic Renal Insuffiency, Prostate Disorder Musculoskeletal History: Reports: Other (See Below) Other Musculoskeletal History: hx fx thumb Oncologic (Cancer) History: Reports: Prostate - Past Surgical History Head Surgeries/Procedures: Reports: None Social & Family History - Family History Family Medical History: Noncontributory - Caffeine Use Caffeine Use: Reports: Coffee, Soda Other Caffeine Use: Daily cofee Review of Systems - Review of Systems Review Of Systems: Comprehensive ROS is negative, except as noted in HPI. ED EXAM, GENERAL - Physical Exam Exam: See Below (see h and p) ED TRAUMA EXTREMITY PROCEDURES - Additional/Other Procedure(s) Other (Free Text) Procedure(s): arthrocentesis (joint aspiration) of right knee. Site was prepped with Betadine. No anesthesia administered. Approach via the lateral superior aspect of the knee using a 21-gauge needle. Aspirated about 10 mL's of clear, straw-colored synovial fluid. Patient tolerated the procedure well. Minimal blood loss. Bleeding controlled with pressure after withdrawal of the needle. No purulent material aspirated. Course - Vital Signs Text/Narrative:: Synovial fluid analysis shows no white blood cells. Crystal investigation is pending at this time, should get results back tomorrow. Given the appearance of the fluid, lack of white blood cells, I believe septic joint is effectively ruled out. Seems to be more consistent with gout. Treated him with a dose of colchicine here, total of 1.2 mg, and send him home with a tablet, 0.6 mg to be taken an hour later. Given his creatinine clearance and GFR, he probably should not be taking colchicine on a regular basis and I told him after these initial doses he should stick with Tylenol and ice to help with swelling and pain. Patient understands this plan. His vital signs are stable. He is otherwise well-appearing. Return precautions provided. Last Recorded V/S: Last Vital Signs Temp 36.0 C L 03/22/20 22:40 Pulse 71 03/22/20 22:40 Resp 18 03/22/20 22:40 BP 177/75 H 03/22/20 22:40 Pulse Ox 95 03/22/20 22:40 - Orders/Labs/Meds Orders: Active Orders 24 hr Category Date Time Status CELL COUNT,BODY FLUID [BF] Stat Lab 03/22/20 23:06 Results CRYSTALS,BODY FLUID [BF] Stat Lab 03/22/20 23:06 Results CULTURE BODY FLUID + SMEAR [RM] Stat Lab 03/22/20 23:06 Results Sodium Chloride 0.9% [Saline Flush] Med 03/22/20 22:42 Active 10 ml FLUSH ASDIRECTED PRN Sodium Chloride 0.9% [Saline Flush] Med 03/22/20 22:42 Active 2.5 ml FLUSH ASDIRECTED PRN Saline Lock Insert [OM.PC] Stat Oth 03/22/20 22:42 Ordered Medication Orders Sodium Chloride (Saline Flush) 10 ml FLUSH ASDIRECTED PRN PRN Reason: Keep Vein Open Sodium Chloride (Saline Flush) 2.5 ml FLUSH ASDIRECTED PRN PRN Reason: Keep Vein Open Labs: Laboratory Tests 03/22/20 03/22/20 03/22/20 Range/Units 23:06 23:15 23:15 WBC 9.35 (4.0-11.0) K/uL RBC 4.20 L (4.50-5.90) M/uL Hgb 13.0 (13.0-17.0) g/dL Hct 40.5 (38.0-50.0) % MCV 96.4 (80.0-98.0) fL MCH 31.0 (27.0-32.0) pg MCHC 32.1 (31.0-37.0) g/dL RDW Std Deviation 45.6 (28.0-62.0) fl RDW Coeff of Mohan 13 (11.0-15.0) % Plt Count 218 (150-400) K/uL MPV 10.70 (7.40-12.00) fL Neut % (Auto) 73.1 (48.0-80.0) % Lymph % (Auto) 8.0 L (16.0-40.0) % [place] % (Auto) 17.4 H (0.0-15.0) % Eos % (Auto) 1.3 (0.0-7.0) % Baso % (Auto) 0.2 (0.0-1.5) % Neut # (Auto) 6.8 H (1.4-5.7) K/uL Lymph # (Auto) 0.8 (0.6-2.4) K/uL [place] # (Auto) 1.6 H (0.0-0.8) K/uL Eos # (Auto) 0.1 (0.0-0.7) K/uL Baso # (Auto) 0.0 (0.0-0.1) K/uL Nucleated RBC % 0.0 /100WBC Nucleated RBCs # 0 K/uL ESR (0-19) mm/hr Sodium 141 (136-148) mmol/L Potassium 3.8 (3.5-5.1) mmol/L Chloride 106 (98-107) mmol/L Carbon Dioxide 25.5 (21.0-32.0) mmol/L BUN 35 H (7.0-18.0) mg/dL Creatinine 2.1 H (0.8-1.3) mg/dL Est Cr Clr Drug Dosing 30.76 mL/min Estimated GFR (MDRD) 31.2 ml/min Glucose 131 H (74-106) mg/dL Calcium 7.9 L (8.5-10.1) mg/dL Total Bilirubin 0.2 (0.2-1.0) mg/dL AST 17 (15-37) IU/L ALT 24 (14-63) IU/L Alkaline Phosphatase 63 (46-116) U/L C-Reactive Protein 2.40 H (0.00-0.90) mg/dL Total Protein 6.4 (6.4-8.2) g/dL Albumin 3.1 L (3.4-5.0) g/dL Globulin 3.3 (2.6-4.0) g/dL Albumin/Globulin Ratio 0.9 (0.9-1.6) Fluid Type SYN Fluid Color COLORLESS Fluid Appearance CLEAR Fluid WBC 0 /uL Fluid RBC < 3000 /uL Fluid Mononuclear Cell 70 % Fl Polymorphonucl Cell 30 % 03/22/20 Range/Units 23:15 WBC (4.0-11.0) K/uL RBC (4.50-5.90) M/uL Hgb (13.0-17.0) g/dL Hct (38.0-50.0) % MCV (80.0-98.0) fL MCH (27.0-32.0) pg MCHC (31.0-37.0) g/dL RDW Std Deviation (28.0-62.0) fl RDW Coeff of Mohan (11.0-15.0) % Plt Count (150-400) K/uL MPV (7.40-12.00) fL Neut % (Auto) (48.0-80.0) % Lymph % (Auto) (16.0-40.0) % [place] % (Auto) (0.0-15.0) % Eos % (Auto) (0.0-7.0) % Baso % (Auto) (0.0-1.5) % Neut # (Auto) (1.4-5.7) K/uL Lymph # (Auto) (0.6-2.4) K/uL [place] # (Auto) (0.0-0.8) K/uL Eos # (Auto) (0.0-0.7) K/uL Baso # (Auto) (0.0-0.1) K/uL Nucleated RBC % /100WBC Nucleated RBCs # K/uL ESR 23 H (0-19) mm/hr Sodium (136-148) mmol/L Potassium (3.5-5.1) mmol/L Chloride (98-107) mmol/L Carbon Dioxide (21.0-32.0) mmol/L BUN (7.0-18.0) mg/dL Creatinine (0.8-1.3) mg/dL Est Cr Clr Drug Dosing mL/min Estimated GFR (MDRD) ml/min Glucose (74-106) mg/dL Calcium (8.5-10.1) mg/dL Total Bilirubin (0.2-1.0) mg/dL AST (15-37) IU/L ALT (14-63) IU/L Alkaline Phosphatase (46-116) U/L C-Reactive Protein (0.00-0.90) mg/dL Total Protein (6.4-8.2) g/dL Albumin (3.4-5.0) g/dL Globulin (2.6-4.0) g/dL Albumin/Globulin Ratio (0.9-1.6) Fluid Type Fluid Color Fluid Appearance Fluid WBC /uL Fluid RBC /uL Fluid Mononuclear Cell % Fl Polymorphonucl Cell % Meds: Medications Generic Name Dose Route Start Last Admin Trade Name Freq PRN Reason Stop Dose Admin Sodium Chloride 10 ml 03/22/20 22:42 Saline Flush FLUSH ASDIRECTED PRN Keep Vein Open Sodium Chloride 2.5 ml 03/22/20 22:42 Saline Flush FLUSH ASDIRECTED PRN Keep Vein Open Discontinued Medications Generic Name Dose Route Start Last Admin Trade Name Freq PRN Reason Stop Dose Admin Colchicine 1.2 mg 03/22/20 23:56 Colcrys PO 03/22/20 23:57 ONETIME ONE Colchicine 0.6 mg 03/23/20 00:01 Colcrys PO 03/23/20 00:02 ONETIME ONE Departure - Departure Time of Disposition: 00:04 Disposition: Home, Self-Care 01 Condition: Good Clinical Impression: Gout attack - Discharge Information Instructions: Low-Purine Eating Plan Referrals: Naresh Lockwood MD [Primary Care Provider] - Forms: ED Department Discharge Additional Instructions: Take all medications as prescribed. Return to ER with any new or worsening symptoms. Follow-up with your primary care doctor. The following information is given to patients seen in the emergency department who are being discharged to home. This information is to outline your options for follow-up care. We provide all patients seen in our emergency department with a follow-up referral. The need for follow-up, as well as the timing and circumstances, are variable depending upon the specifics of your emergency department visit. If you don't have a primary care physician on staff, we will provide you with a referral. We always advise you to contact your personal physician following an emergency department visit to inform them of the circumstance of the visit and for follow-up with them and/or the need for any referrals to a consulting specialist. The emergency department will also refer you to a specialist when appropriate. This referral assures that you have the opportunity for follow-up care with a specialist. All of these measure are taken in an effort to provide you with optimal care, which includes your follow-up. Under all circumstances we always encourage you to contact your private physician who remains a resource for coordinating your care. When calling for follow-up care, please make the office aware that this follow-up is from your recent emergency room visit. If for any reason you are refused follow-up, please contact the [facility] Emergency Department at and asked to speak to the emergency department charge nurse. Sepsis Event Note (ED) - Focused Exam Vital Signs: Vital Signs Temp Pulse Resp BP Pulse Ox 03/22/20 22:40 36.0 C L 71 18 177/75 H 95 - My Orders Last 24 Hours: My Active Orders 03/22/20 22:42 Sodium Chloride 0.9% [Saline Flush] 10 ml FLUSH ASDIRECTED PRN Sodium Chloride 0.9% [Saline Flush] 2.5 ml FLUSH ASDIRECTED PRN Saline Lock Insert [OM.PC] Stat 03/22/20 23:06 CELL COUNT,BODY FLUID [BF] Stat CRYSTALS,BODY FLUID [BF] Stat CULTURE BODY FLUID + SMEAR [RM] Stat - Assessment/Plan Last 24 Hours: My Active Orders 03/22/20 22:42 Sodium Chloride 0.9% [Saline Flush] 10 ml FLUSH ASDIRECTED PRN Sodium Chloride 0.9% [Saline Flush] 2.5 ml FLUSH ASDIRECTED PRN Saline Lock Insert [OM.PC] Stat 03/22/20 23:06 CELL COUNT,BODY FLUID [BF] Stat CRYSTALS,BODY FLUID [BF] Stat CULTURE BODY FLUID + SMEAR [RM] Stat
--- NOTE | 2020-03-22 23:43 | CR ---
INDICATION: Right knee pain and redness with no history of trauma. Consider gout. COMPARISON: None available. TECHNIQUE: The right knee was examined with AP, lateral, and sunrise views for a total of three views using portable technique at 22 57 hours. FINDINGS: There is no sign of fracture or dislocation. The medial and lateral compartments are normal in height. There is no sign of a joint effusion. There is no sign of any juxta-articular erosions to suggest gout. No soft tissue abnormality is seen. IMPRESSION: Normal right knee. Dictated by Brady Marie MD @ Mar 22 2020 11:40PM Signed by Dr. Brady Marie @ Mar 22 2020 11:41PM
[2020-03-22 23:48] LABS: CARBON DIOXIDE,CO2 25.5 mmol/L (21.0-32.0); POTASSIUM,K 3.8 mmol/L (3.5-5.1)
[2020-03-22] MEDS ORDERED: Colchicine 0.6 MG Tab PO ONE (23:56)
[2020-03-23] MEDS ORDERED: Colchicine 0.6 MG Tab PO ONE (00:01)
[2020-03-23 00:07] VITALS: BP 138/60; PULSE 77
== END 2020-03-23 00:18 | disposition home or self-care (01) ==
LOC: MW.ED 22:12
DX: M10.9 Gout, unspecified (principal); I12.9 Hypertensive chronic kidney disease with stage 1 through stage 4 chronic kidney disease, or unspecified chronic kidney disease; N18.9 Chronic kidney disease, unspecified; K21.9 Gastro-esophageal reflux disease without esophagitis; E78.00 Pure hypercholesterolemia, unspecified; Z79.899 Other long term (current) drug therapy
CPT/HCPCS: 20610; 36415; 73562; 80053; 85025; 85652; 86140; 87070; 87205; 89050; 89060; 99283; A9270

== ENCOUNTER 2021-03-08 06:59 | Day surgery (SDC) | payer OTHER, MEDICARE ==
[~2021-03-08 06:59] MED LIST: Lactated Ringers 1,000 ML IV SCH
[2021-03-08] MEDS ORDERED: Propofol 200 MG/20 ML SDV ONE (07:01)
[2021-03-08] MEDS ORDERED: fentaNYL 100 MCG/2 ML SDV ONE (07:01)
--- NOTE | 2021-03-08 07:42 | PCM.PREANE ---
Preanesthetic Assessment - Anesthesia/Transfusion/Family Hx Anesthesia History: Prior Anesthesia Without Reaction Family History of Anesthesia Reaction: No Transfusion History: No Prior Transfusion(s) Intubation History: History of Difficulty Intubation (Anterior/Grade IV View with Cano 2 (disposable); Bougie used and successful) - Physical Assessment NPO Status Date: 03/08/21 NPO Status Time: 00:01 Vital Signs: Last Vital Signs Temp 97.2 F 03/08/21 07:26 Pulse 68 03/08/21 07:26 Resp 16 03/08/21 07:26 BP 182/78 H 03/08/21 07:26 Pulse Ox 95 03/08/21 07:26 Height: 5 ft 8 in Weight: 184 lb ASA Class: 2 Airway Class: Mallampati = 2 ROM/Head Extension: Limited/Partial Lungs: Normal Respiratory Effort Cardiovascular: Regular Rhythm - Allergies Allergies/Adverse Reactions: Allergies Allergy/AdvReac Type Severity Reaction Status Date / Time No Known Allergies Allergy Verified 03/08/21 07:13 - Anesthesia Plan Pre-Op Medication Ordered: None - Acknowledgements Anesthesia Type Planned: General Anesthesia Pt an Appropriate Candidate for the Planned Anesthesia: Yes Alternatives and Risks of Anesthesia Discussed w Pt/Guardian: Yes Pt/Guardian Understands and Agrees with Anesthesia Plan: Yes Additional Comments: npo hx prostate CA with XRT 2015 narciso tob quit 1999 etoh occ htn no cv problems bmi 26 no asthma or copd par no questions PreAnesthesia Questionnaire HEENT History: Reports: Other (See Below) Other HEENT History: wears glasses, top partial Cardiovascular History: Reports: High Cholesterol, Hypertension Respiratory History: Reports: SOB Other Respiratory History: states SOB at times with excertion, states has inhaler but has not used in years Gastrointestinal History: Reports: GERD Genitourinary History: Reports: Chronic Renal Insuffiency, Prostate Disorder Musculoskeletal History: Reports: Back Pain, Chronic, Gout, Other (See Below) Other Musculoskeletal History: hx fx thumb Neurological History: Reports: None Psychiatric History: Reports: None Endocrine/Metabolic History: Reports: None Hematologic History: Reports: None Immunologic History: Reports: None Oncologic (Cancer) History: Reports: Prostate Dermatologic History: Reports: None - Infectious Disease History Infectious Disease History: Reports: None - Past Surgical History Head Surgeries/Procedures: Reports: None HEENT Surgical History: Reports: None Cardiovascular Surgical History: Reports: None Respiratory Surgical History: Reports: None GI Surgical History: Reports: None Male Surgical History: Reports: Prostatectomy Endocrine Surgical History: Reports: None Neurological Surgical History: Reports: None Musculoskeletal Surgical History: Reports: None Oncologic Surgical History: Reports: None Dermatological Surgical History: Reports: Other (See Below) - SUBSTANCE USE Tobacco Use Status *Q: Former Tobacco User Tobacco Use Within Last Twelve Months: No - HOME MEDS Home Medications: Home Meds Aspirin [[place] Aspirin EC] 81 mg PO MOWEFR@0900 01/03/17 [History] Pravastatin Sodium [Pravachol] 40 mg PO BEDTIME 01/03/17 [History] amLODIPine Besylate [Norvasc] 2.5 mg PO DAILY 01/03/17 [History] Famotidine [Pepcid AC] 40 mg PO BEDTIME 01/09/17 [History] Albuterol Sulfate [Albuterol Sulfate HFA] 1 - 2 puff INH ASDIRECTED PRN 03/02/21 [History] Calcium Carb, Citrate/Vit D3 [Citracal + D ER] 1 tab PO DAILY 03/02/21 [History] Cholecalciferol (Vitamin D3) [Vitamin D3] 1 tab PO DAILY 03/02/21 [History] Root For Joint Health 1 tab PO BEDTIME 03/02/21 [History] - CURRENT (IN HOUSE) MEDS Current Meds: Current Medications Lactated Ringer's (Ringers, Lactated) 1,000 mls @ 125 mls/hr IV ASDIRECTED SANTINO Last Admin: 03/08/21 07:33 Dose: 125 mls/hr Documented by: Discontinued Medications Fentanyl (Fentanyl 100 Mcg/2 Ml Sdv) Confirm Administered Dose 100 mcg .ROUTE .STK-MED ONE Stop: 03/08/21 07:02 Lidocaine HCl (Lidocaine 1% 5 Ml Sdv) Confirm Administered Dose 5 ml .ROUTE .STK-MED ONE Stop: 03/08/21 07:02 Propofol (Propofol 200 Mg/20 Ml Sdv) Confirm Administered Dose 400 mg .ROUTE .STK-MED ONE Stop: 03/08/21 07:02
--- NOTE | 2021-03-08 09:08 | PCM.OPNOTE ---
- General Post-Op/Procedure Note Date of Surgery/Procedure: 03/08/21 Operative Procedure(s): colonoscopy and polypectomy Findings: colon polyp dictation number [id number] Pre Op Diagnosis: Positive cologuard Post-Op Diagnosis: colon polyp. conley diverticuolosis Pathology: colon polyp Complications: None Condition: Good
[2021-03-08 09:21] VITALS: BP 122/68; PULSE 62
--- NOTE | 2021-03-08 09:25 | PCM.POSTAN ---
POST ANESTHESIA ASSESSMENT - MENTAL STATUS Mental Status: Alert (no anesthetic problems), Oriented - VITAL SIGNS Vital Signs: Last Vital Signs Temp 97.5 F 03/08/21 09:03 Pulse 62 03/08/21 09:20 Resp 11 L 03/08/21 09:20 BP 122/68 03/08/21 09:20 Pulse Ox 95 03/08/21 09:20 - RESPIRATORY Respiratory Status: Respiratory Rate WNL, Airway Patent, O2 Saturation Stable - CARDIOVASCULAR CV Status: Pulse Rate WNL, Blood Pressure Stable - GASTROINTESTINAL GI Status: No Symptoms - POST OP HYDRATION Hydration Status: Adequate & Stable
--- NOTE | 2021-03-08 09:48 | PCM48HPAN ---
Post Anesthesia Note - EVALUATION WITHIN 48HRS OF ANESTHETIC Vital Signs in Normal Range: Yes Patient Participated in Evaluation: Yes Respiratory Function Stable: Yes Airway Patent: Yes Cardiovascular Function Stable: Yes Hydration Status Stable: Yes Pain Control Satisfactory: Yes Nausea and Vomiting Control Satisfactory: Yes Mental Status Recovered: Yes Vital Signs: Last Vital Signs Temp 97.5 F 03/08/21 09:03 Pulse 62 03/08/21 09:20 Resp 11 L 03/08/21 09:20 BP 122/68 03/08/21 09:20 Pulse Ox 95 03/08/21 09:20
--- NOTE | 2021-03-08 13:14 | OR ---
SURGEON: KARISSA PRUITT MD DATE OF PROCEDURE: 03/08/2021 PREOPERATIVE DIAGNOSIS: Positive Cologuard. POSTOPERATIVE DIAGNOSES: 1. Colon polyp at 70 cm. 2. Pandiverticulosis. PROCEDURE PERFORMED: 1. Colonoscopy. 2. Hot snare polypectomy. PRIMARY SURGEON: Karissa Pruitt MD ANESTHESIA: With anesthesiologist. EXTENT OF COLONOSCOPY: Colonoscopy to the cecum. BOWEL PREP: Excellent. LIMITATIONS: None. REASON FOR PROCEDURE: The patient is a pleasant 71-year-old gentleman who did have a positive Cologuard. PROCEDURE IN DETAIL: Physical examination was performed. The major risks and benefits were explained to the patient. The patient verbalized agreement and understanding of the same. The patient was connected to the appropriate monitoring devices and IV was started. EKG, pulse oximetry, blood pressure, and capnography were monitored throughout the procedure. Continuous oxygen and sedation were provided by the anesthesiologist. The patient was placed in left lateral decubitus position and sedation began. After adequate sedation was achieved, a rectal exam was performed. No rectal masses or polyps were felt. Now, a well-lubricated Olympus colonoscope was entered in the rectum and advanced under direct visualization to the level of the cecum. The patient did have some diverticulosis throughout his sigmoid. The sigmoid also seemed slightly less floppy. Potentially, he has had episodes of diverticulitis in the past as well as diverticulosis. The scope was easily navigated through and reached the cecum. Cecum was identified by both visual and anatomic landmarks. Photographs were taken of the cecal cap. Scope was then slowly withdrawn in somewhat circular fashion looking at the color, texture, anatomy, and integrity of the mucosa from the cecum to the anal canal. Right about at 70 cm, there appeared to be right around the hepatic flexure, the patient had a polyp. This was removed in 2 passes of hot snare. One of the pieces was too large to suction out, so it was again bisected. There was good hemostasis at the site and appeared to be completely removed. A resolution clip was placed to reapproximate the mucosa. Scope was continued to be withdrawn. The patient did have diverticulosis throughout the whole of his colon, more in the sigmoid and transverse but some scant in his ascending colon for pandiverticulosis. No polyps or masses were seen in the sigmoid, although again he had quite a few diverticulosis in the sigmoid less mobile. Scope was retroflexed in the rectum. Scope was completely removed. Procedure was terminated. ENDOSCOPIC DIAGNOSES: 1. Pandiverticulosis. 2. Colon polyp at 70 cm. RECOMMENDATIONS: Followup colonoscopy and pathology. He will most likely another one in 3 to 5 years, sooner if he develops signs and symptoms such as change in bowel habits or blood in his stool. MARIEL / TONEY /[id number]
== END 2021-03-08 09:55 | disposition home or self-care (01) ==
LOC: MW.SDS 06:59
PROVIDERS: ATTEND Surgery
DX: D12.2 Benign neoplasm of ascending colon (principal); K57.30 Diverticulosis of large intestine without perforation or abscess without bleeding; I12.9 Hypertensive chronic kidney disease with stage 1 through stage 4 chronic kidney disease, or unspecified chronic kidney disease; N18.30 Chronic kidney disease, stage 3 unspecified; E78.5 Hyperlipidemia, unspecified; R73.03 Prediabetes; M10.9 Gout, unspecified; Z79.899 Other long term (current) drug therapy; Z85.46 Personal history of malignant neoplasm of prostate; Z87.891 Personal history of nicotine dependence
CPT/HCPCS: 45385; 88305; J2704; J3010; J7120; 00811

== ENCOUNTER 2021-12-03 18:59 | Emergency (ER) | payer OTHER, MEDICARE ==
[2021-12-03] MEDS ORDERED: Sodium Chloride 0.9% 2.5 ML Syringe FLUSH PRN (19:08)
[2021-12-03] MEDS ORDERED: Sodium Chloride 0.9% 10 ML Syringe FLUSH PRN (19:08)
[2021-12-03] MEDS ORDERED: Nitroglycerin 0.4 MG Tab.SL SL PRN (19:09)
[2021-12-03] MEDS ORDERED: Aspirin 81 MG Tab.Chew PO ONE (19:09)
[2021-12-03] MEDS ORDERED: Aspirin 81 MG Tab.Chew ONE (19:11)
[2021-12-03] MEDS ORDERED: Sodium Chloride 0.9% 1,000 ML IV ONE (19:15)
[2021-12-03] MEDS ORDERED: Heparin Sodium 5,000 Units/ML Vial IVPUSH ONE (19:19)
[2021-12-03] MEDS ORDERED: Heparin Sodium/0.45% NaCl 500 ML IV STA (19:27)
[2021-12-03] MEDS ORDERED: Tenecteplase 50 MG Kit IV STA (19:28)
[2021-12-03] MEDS ORDERED: Nitroglycerin 0.4 MG Tab.SL SL ONE (19:29)
[2021-12-03] MEDS ORDERED: Clopidogrel 75 MG Tab PO ONE (19:40)
[2021-12-03 19:43] VITALS: PULSE 78
[2021-12-03 19:45] LABS: CARBON DIOXIDE,CO2 26.3 mmol/L (21.0-32.0); POTASSIUM,K 4.2 mmol/L (3.5-5.1)
[2021-12-03 19:47] VITALS: BP 160/77
== END 2021-12-03 19:56 ==
LOC: MW.ED 18:59
DX: I21.3 ST elevation (STEMI) myocardial infarction of unspecified site (principal); I10 Essential (primary) hypertension; E78.00 Pure hypercholesterolemia, unspecified; K21.9 Gastro-esophageal reflux disease without esophagitis; M10.9 Gout, unspecified; Z79.82 Long term (current) use of aspirin; Z79.899 Other long term (current) drug therapy; Z20.822 Contact with and (suspected) exposure to COVID-19
CPT/HCPCS: 36415; 71045; 80053; 84484; 85025; 85610; 85730; 87635; 92977; 93005; 96365; 99285; A9270; J1644; J3101; J7030; U0002